=== PATIENT | male | born 1970 | race Caucasian/White ===

== ENCOUNTER → 2018-01-02 | Outpatient (CLI) | payer OTHER ==
[~2018-01-02] MED LIST: GABA300 PO; OXYC15ER PO; ZOLP10 PO
== END | disposition home or self-care (01) ==
LOC: LAB EV 16:48 → LAB SHORT 16:48
DX: J02.9 Acute pharyngitis, unspecified (principal)
CPT/HCPCS: 87070

== ENCOUNTER → 2018-01-10 | Outpatient (CLI) | payer OTHER ==
[2018-01-10 13:44] LABS: BASOPHILS ABSOLUTE AUTO 0.03 K/mm3 (0.00-0.23); BASOPHILS PERCENT AUTO 1 % (0-2); EOSINOPHILS ABSOLUTE AUTO 0.16 K/mm3 (0.00-0.68); EOSINOPHILS PERCENT AUTO 3 % (0-6); Hematocrit 40.8 % (37.0-53.0); Hemoglobin 14.1 g/dL (13.5-17.5); IMMATURE GRAN ABSOLUTE AUTO 0.01 K/mm3 (0.00-0.10); IMMATURE GRAN PERCENT AUTO 0 % (0-1); LYMPHOCYTES ABSOLUTE AUTO 1.57 K/mm3 (0.84-5.20); LYMPHOCYTES PERCENT AUTO 28 % (21-46); MONOCYTES ABSOLUTE AUTO 0.54 K/mm3 (0.16-1.47); MONOCYTES PERCENT AUTO 10 % (4-13); Mean Corpuscular HGB 31.1 pg (26.0-34.0); Mean Corpuscular HGB Conc 34.6 g/dL (31.5-36.5); Mean Corpuscular Volume 90 fL (80-100); Mean Platelet Volume 9.2 fL (9.1-12.4); NEUTROPHILS ABSOLUTE AUTO 3.24 K/mm3 (1.96-9.15); NEUTROPHILS PERCENT AUTO 58 % (41-73); Platelet Count 257 K/mm3 (150-400); RDW Coefficient Variation 13.2 % (11.7-14.2); RDW Standard Deviation 43.2 fL (35.1-46.3); Red Blood Cell Count 4.53 M/mm3 (4.30-5.90); White Blood Cell Count 5.55 K/mm3 (4.00-11.30)
[2018-01-10 14:03] LABS: Alanine Aminotransfer (ALT/SGP 38 U/L (12-78); Albumin, Blood 3.8 g/dL (3.4-5.0); Alk Phos 86 U/L (40-126); Anion Gap 9 mmol/L (6-16); Aspartate Aminotrans (AST/SGOT 27 U/L (12-37); Bilirubin, Total 0.3 mg/dL (0.1-1.0); Blood Urea Nitrogen 20 mg/dL (8-24); Bun/Creatinine Ratio 23.3 (12.0-20.0); CO2, Blood 28 mmol/L (21-32); Chloride, Blood 102 mmol/L (98-108); Creatinine, Blood 0.86 mg/dL (0.60-1.20); Globulin, Blood 3.8 g/dL (2.2-4.0); Glomerular Filtration Rate >60 (60-); Glucose, Blood 121 mg/dL (70-99); Potassium, Blood 3.7 mmol/L (3.5-5.5); Sodium, Blood 139 mmol/L (136-145); Thyroid Stimulating Hormone 16.798 uIU/mL (0.360-4.800); Total Protein, Blood 7.6 g/dL (6.4-8.2)
[2018-01-10 14:42] LABS: Free Thyroxine 0.63 ng/dL (0.70-1.60)
[2018-01-12 06:12] LABS: HBSAG SCREEN Negative (Negative); HEP A AB, IGM Negative (Negative); HEP B CORE AB, IGM Negative (Negative); HEP C VIRUS AB <0.1 (0.0-0.9)
[2018-01-12 11:07] LABS: HIV SCREEN 4TH GENERATION WRFX Non Reactive (Non Reactive)
== END | disposition home or self-care (01) ==
LOC: LAB SHORT 13:35 → LAB EV 13:35
PROVIDERS: Physician Assistant
DX: R53.83 Other fatigue (principal); Z20.9 Contact with and (suspected) exposure to unspecified communicable disease
CPT/HCPCS: 80053; 84439; 84443; 84481; 85025; 86592

== ENCOUNTER 2018-01-23 09:03 | Emergency (ER) | payer OTHER ==
[~2018-01-23] VITALS: Ht 182.9 cm; Wt 79.4 kg
[2018-01-23] MEDS ORDERED: Naprosyn500 MG PO (10:11)
== END 2018-01-23 10:50 | disposition home or self-care (01) ==
LOC: ER 09:03
DX: S91.302A Unspecified open wound, left foot, initial encounter (principal); S00.31XA Abrasion of nose, initial encounter; S50.811A Abrasion of right forearm, initial encounter; S80.812A Abrasion, left lower leg, initial encounter; M25.552 Pain in left hip; V23.4XXA Motorcycle driver injured in collision with car, pick-up truck or van in traffic accident, initial encounter; Z88.5 Allergy status to narcotic agent; Z88.8 Allergy status to other drugs, medicaments and biological substances; Z79.891 Long term (current) use of opiate analgesic; Z79.899 Other long term (current) drug therapy; F17.200 Nicotine dependence, unspecified, uncomplicated
CPT/HCPCS: 73100; 73502; 73620; 90471; 90714; 99284

== ENCOUNTER 2018-01-27 08:52 | Emergency (ER) | payer OTHER ==
[~2018-01-27] VITALS: Ht 177.8 cm; Wt 79.4 kg
[~2018-01-27 08:52] MED LIST changes: +Naprosyn500 MG PO
[2018-01-27] MEDS ORDERED: Mupirocin22 GM TOP (09:10)
[2018-01-27] MEDS ORDERED: CEPH500 PO (09:10)
== END 2018-01-27 09:32 | disposition home or self-care (01) ==
LOC: ER 08:52
DX: S62.001A Unspecified fracture of navicular [scaphoid] bone of right wrist, initial encounter for closed fracture (principal); S91.332A Puncture wound without foreign body, left foot, initial encounter; L08.9 Local infection of the skin and subcutaneous tissue, unspecified; S70.02XA Contusion of left hip, initial encounter; V89.2XXA Person injured in unspecified motor-vehicle accident, traffic, initial encounter; Z88.8 Allergy status to other drugs, medicaments and biological substances; Z88.5 Allergy status to narcotic agent; F17.200 Nicotine dependence, unspecified, uncomplicated
CPT/HCPCS: 99282

== ENCOUNTER 2018-09-06 19:07 | Emergency (ER) | payer OTHER ==
[~2018-09-06 19:07] MED LIST changes: +CEPH500 PO; +Mupirocin22 GM TOP
== END 2018-09-06 20:06 | disposition left against medical advice (07) ==
LOC: ER 19:07
DX: Z53.21 Procedure and treatment not carried out due to patient leaving prior to being seen by health care provider (principal)

== ENCOUNTER 2018-11-07 20:56 | Emergency (ER) | payer OTHER ==
[~2018-11-07] VITALS: Ht 182.9 cm; Wt 81.7 kg
[2018-11-07] MEDS ORDERED: BRINTELLIX10 MG PO (21:32)
[2018-11-07] MEDS ORDERED: ZOLP10 PO (21:32)
[2018-11-07] MEDS ORDERED: CEPH500 PO (22:43)
== END 2018-11-07 22:48 | disposition home or self-care (01) ==
LOC: ER 20:56
DX: L02.411 Cutaneous abscess of right axilla (principal); L03.111 Cellulitis of right axilla; Z88.5 Allergy status to narcotic agent; Z88.8 Allergy status to other drugs, medicaments and biological substances; Z79.899 Other long term (current) drug therapy; F17.200 Nicotine dependence, unspecified, uncomplicated
CPT/HCPCS: 10060; 99282-25

== ENCOUNTER 2022-05-28 22:22 | Emergency (ER) | payer OTHER ==
[~2022-05-28] VITALS: Ht 180.3 cm; Wt 74.8 kg
[~2022-05-28 22:22] MED LIST changes: +BRINTELLIX10 MG PO; +KETO10 PO; +ONDA4ODT PO
[2022-05-28] MEDS ORDERED: SYNTHROID50 MC1 PO (23:25)
[2022-05-28 23:30] LABS: BASOPHILS ABSOLUTE AUTO 0.03 K/mm3 (0.00-0.23); BASOPHILS PERCENT AUTO 1 % (0-2); EOSINOPHILS ABSOLUTE AUTO 0.21 K/mm3 (0.00-0.68); EOSINOPHILS PERCENT AUTO 3 % (0-6); Hematocrit 40.2 % (37.0-53.0); Hemoglobin 14.1 g/dL (13.5-17.5); IMMATURE GRAN ABSOLUTE AUTO 0.01 K/mm3 (0.00-0.10); IMMATURE GRAN PERCENT AUTO 0 % (0-1); LYMPHOCYTES ABSOLUTE AUTO 1.57 K/mm3 (0.84-5.20); LYMPHOCYTES PERCENT AUTO 24 % (21-46); MONOCYTES ABSOLUTE AUTO 0.67 K/mm3 (0.16-1.47); MONOCYTES PERCENT AUTO 10 % (4-13); Mean Corpuscular HGB 31.8 pg (26.0-34.0); Mean Corpuscular HGB Conc 35.1 g/dL (31.5-36.5); Mean Corpuscular Volume 91 fL (80-100); Mean Platelet Volume 8.7 fL (9.1-12.4); NEUTROPHILS ABSOLUTE AUTO 4.07 K/mm3 (1.96-9.15); NEUTROPHILS PERCENT AUTO 62 % (41-73); Platelet Count 249 K/mm3 (150-400); RDW Coefficient Variation 12.7 % (11.7-14.2); RDW Standard Deviation 42.4 fL (35.1-46.3); Red Blood Cell Count 4.44 M/mm3 (4.30-5.90); White Blood Cell Count 6.56 K/mm3 (4.00-11.30)
[2022-05-28 23:54] LABS: Albumin, Blood 3.8 g/dL (3.4-5.0); Albumin/Globulin Ratio 1.1 (0.8-1.8); Bilirubin, Total 0.3 mg/dL (0.1-1.0); Bun/Creatinine Ratio 25.3 (12.0-20.0); Calcium, Blood 8.9 mg/dL (8.5-10.1); Creatinine, Blood 0.79 mg/dL (0.60-1.20); Globulin, Blood 3.5 g/dL (2.2-4.0); Potassium, Blood 3.8 mmol/L (3.5-5.5); Thyroid Stimulating Hormone 62.9 uIU/mL (0.360-4.800); Total Protein, Blood 7.3 g/dL (6.4-8.2)
== END 2022-05-29 02:09 | disposition home or self-care (01) ==
LOC: ER 22:22
PROVIDERS: Emergency Medicine
DX: R07.89 Other chest pain (principal); I10 Essential (primary) hypertension; E03.9 Hypothyroidism, unspecified; F17.210 Nicotine dependence, cigarettes, uncomplicated; Z79.890 Hormone replacement therapy
CPT/HCPCS: 36415; 71045; 80053; 83880; 84443; 84484; 85025; 93005; 93010; 99285-25

== ENCOUNTER 2022-10-18 01:11 | Emergency (ER) | payer OTHER ==
[~2022-10-18] VITALS: Ht 180.3 cm; Wt 86.2 kg
[~2022-10-18 01:11] MED LIST changes: +SYNTHROID50 MC1 PO
[2022-10-18] MEDS ORDERED: IBUP800 PO (01:23)
[2022-10-18] MEDS ORDERED: Amoxicillin875 MG PO (01:23)
== END 2022-10-18 01:43 | disposition home or self-care (01) ==
LOC: ER 01:11
DX: K02.9 Dental caries, unspecified (principal); E03.9 Hypothyroidism, unspecified; F17.210 Nicotine dependence, cigarettes, uncomplicated; Z79.899 Other long term (current) drug therapy
CPT/HCPCS: A9270

== ENCOUNTER → 2023-01-09 | Emergency (ER) | payer OTHER ==
[~2023-01-09] VITALS: Ht 182.9 cm; Wt 81.7 kg
[~2023-01-09] MED LIST changes: +Amoxicillin875 MG PO; +CYCL10 PO; +IBUP800 PO
[2023-01-09 20:44] VITALS: BP 142/114
== END ==
LOC: ER 20:23
DX: S16.1XXA Strain of muscle, fascia and tendon at neck level, initial encounter (principal); E03.9 Hypothyroidism, unspecified; F17.210 Nicotine dependence, cigarettes, uncomplicated; X58.XXXA Exposure to other specified factors, initial encounter; Z79.890 Hormone replacement therapy
CPT/HCPCS: J1885

== ENCOUNTER 2023-02-04 23:25 | Emergency (ER) | payer OTHER ==
[~2023-02-04] VITALS: Ht 182.9 cm; Wt 79.4 kg
[~2023-02-04 23:25] MED LIST changes: +IBU600 M1 PO; +Robaxin750 MG PO
[2023-02-04 23:37] VITALS: BP 176/107
[2023-02-05] MEDS ORDERED: LIDO700A20 TOP (00:37)
[2023-02-05] MEDS ORDERED: Robaxin750 MG PO (00:37)
[2023-02-05] MEDS ORDERED: HYDR1TAB94 PO (00:38)
== END 2023-02-05 00:44 | disposition home or self-care (01) ==
LOC: ER 23:25
DX: M54.2 Cervicalgia (principal); F17.210 Nicotine dependence, cigarettes, uncomplicated
CPT/HCPCS: 96372; 99282-25; A9270; J1885

== ENCOUNTER 2023-02-13 22:48 | Emergency (ER) | payer OTHER ==
[~2023-02-13] VITALS: Ht 182.9 cm; Wt 79.4 kg
[~2023-02-13 22:48] MED LIST changes: +HYDR1TAB94 PO; +LIDO700A20 TOP
[2023-02-14] MEDS ORDERED: GABA300 PO (01:55)
[2023-02-14 02:30] VITALS: BP 143/108
== END 2023-02-14 02:42 | disposition home or self-care (01) ==
LOC: ER 22:48
DX: M54.12 Radiculopathy, cervical region (principal); F17.210 Nicotine dependence, cigarettes, uncomplicated
CPT/HCPCS: 96372; 99283-25; A9270; J1885; J2270

== ENCOUNTER 2023-02-20 02:24 | Emergency (ER) | payer OTHER ==
[~2023-02-20] VITALS: Ht 182.9 cm; Wt 79.4 kg
[2023-02-20 02:29] VITALS: BP 145/76
[2023-02-20] MEDS ORDERED: Voltaren100 GM TOP (03:22)
[2023-02-20] MEDS ORDERED: NAPR500 PO (03:22)
[2023-02-20] MEDS ORDERED: CYCL10 PO (03:22)
== END 2023-02-20 03:29 | disposition home or self-care (01) ==
LOC: ER 02:24
DX: S16.1XXA Strain of muscle, fascia and tendon at neck level, initial encounter (principal); G44.209 Tension-type headache, unspecified, not intractable; X58.XXXA Exposure to other specified factors, initial encounter; Z79.899 Other long term (current) drug therapy; F17.210 Nicotine dependence, cigarettes, uncomplicated
CPT/HCPCS: 96374; 96375; 99282-25; A9270; J1100; J1885

== ENCOUNTER 2023-02-28 01:43 | Emergency (ER) | payer OTHER ==
[~2023-02-28] VITALS: Ht 182.9 cm; Wt 79.4 kg
[~2023-02-28 01:43] MED LIST changes: +NAPR500 PO; +Voltaren100 GM TOP
[2023-02-28 01:51] VITALS: BP 144/71
[2023-02-28] MEDS ORDERED: IBUP200 PO (02:19)
[2023-02-28] MEDS ORDERED: IBUP800 PO (03:44)
[2023-02-28] MEDS ORDERED: GABA300 PO (03:44)
== END 2023-02-28 04:00 | disposition home or self-care (01) ==
LOC: ER 01:43
DX: M54.12 Radiculopathy, cervical region (principal); F17.210 Nicotine dependence, cigarettes, uncomplicated
CPT/HCPCS: 96372; 99283; A9270; J1885

== ENCOUNTER 2023-04-29 22:35 | Emergency (ER) | payer OTHER ==
[~2023-04-29] VITALS: Ht 182.9 cm; Wt 79.4 kg
[~2023-04-29 22:35] MED LIST changes: +IBUP200 PO
[2023-04-29 22:40] VITALS: BP 154/104
[2023-04-29] MEDS ORDERED: LEVOTHYROXINE50 MC9 PO (22:45)
== END 2023-04-29 23:05 | disposition home or self-care (01) ==
LOC: ER 22:35
DX: M54.41 Lumbago with sciatica, right side (principal); Z79.899 Other long term (current) drug therapy; F17.200 Nicotine dependence, unspecified, uncomplicated
CPT/HCPCS: 96374; 99283-25; J1885

== ENCOUNTER 2023-05-24 21:46 | Emergency (ER) | payer OTHER ==
[~2023-05-24] VITALS: Ht 182.9 cm; Wt 79.4 kg
[~2023-05-24 21:46] MED LIST changes: +LEVOTHYROXINE50 MC9 PO
[2023-05-24 21:54] VITALS: BP 137/89
[2023-05-24] MEDS ORDERED: HYDR1TAB94 PO (22:30)
== END 2023-05-24 22:36 | disposition home or self-care (01) ==
LOC: ER 21:46
DX: M54.12 Radiculopathy, cervical region (principal); M54.30 Sciatica, unspecified side; Z79.899 Other long term (current) drug therapy; F17.210 Nicotine dependence, cigarettes, uncomplicated
CPT/HCPCS: 96372; 99283-25; A9270; J1885

== ENCOUNTER 2023-05-28 09:55 | Emergency (ER) | payer OTHER ==
[~2023-05-28] VITALS: Ht 182.9 cm; Wt 79.4 kg
[2023-05-28 11:07] LABS: BASOPHILS ABSOLUTE AUTO 0.03 K/mm3 (0.00-0.23); BASOPHILS PERCENT AUTO 1 % (0-2); EOSINOPHILS ABSOLUTE AUTO 0.25 K/mm3 (0.00-0.68); EOSINOPHILS PERCENT AUTO 5 % (0-6); Hematocrit 43.9 % (37.0-53.0); Hemoglobin 14.9 g/dL (13.5-17.5); IMMATURE GRAN ABSOLUTE AUTO 0.01 K/mm3 (0.00-0.10); IMMATURE GRAN PERCENT AUTO 0 % (0-1); LYMPHOCYTES PERCENT AUTO 24 % (21-46); MONOCYTES ABSOLUTE AUTO 0.58 K/mm3 (0.16-1.47); MONOCYTES PERCENT AUTO 11 % (4-13); Mean Corpuscular HGB 31.3 pg (26.0-34.0); Mean Corpuscular HGB Conc 33.9 g/dL (31.5-36.5); Mean Corpuscular Volume 92 fL (80-100); Mean Platelet Volume 9.1 fL (9.1-12.4); NEUTROPHILS ABSOLUTE AUTO 3.27 K/mm3 (1.96-9.15); NEUTROPHILS PERCENT AUTO 60 % (41-73); Platelet Count 287 K/mm3 (150-400); RDW Coefficient Variation 12.9 % (11.7-14.2); RDW Standard Deviation 43.8 fL (35.1-46.3); Red Blood Cell Count 4.76 M/mm3 (4.30-5.90); White Blood Cell Count 5.44 K/mm3 (4.00-11.30)
[2023-05-28 11:35] LABS: Albumin, Blood 4.1 g/dL (3.4-5.0); Albumin/Globulin Ratio 1.2 (0.8-1.8); Bilirubin, Total 0.3 mg/dL (0.1-1.0); Bun/Creatinine Ratio 25.7 (12.0-20.0); Calcium, Blood 9.3 mg/dL (8.5-10.1); Creatinine, Blood 0.66 mg/dL (0.60-1.20); Globulin, Blood 3.4 g/dL (2.2-4.0); Potassium, Blood 4.2 mmol/L (3.5-5.5); Total Protein, Blood 7.5 g/dL (6.4-8.2)
[2023-05-28 12:29] LABS: Source, Urine Clean Catch
[2023-05-28 12:54] LABS: Appearance, Urine Clear (Clear); Bilirubin, Urine Neg (Neg); Blood, Urine 1+ (Neg); Color, Urine Yellow (P-Yellow); Glucose Qualitative, Urine Neg (Neg); Ketones, Urine Neg (Neg); Leukocyte Esterase, Urine Neg (Neg); Nitrite, Urine Neg (Neg); Protein, Urine Neg (Neg); Urobilinogen, Urine NORM (Normal)
[2023-05-28 13:03] LABS: Bacteria Rare /hpf; Squamous Epithelial Cells Not Seen /hpf (Few); White Blood Cells, Urine 0-2 /hpf (0-5)
[2023-05-28] MEDS ORDERED: Norco 5-325 Ta1 EACH PO (13:41)
[2023-05-28 14:00] VITALS: BP 117/92
== END 2023-05-28 14:02 | disposition home or self-care (01) ==
LOC: ER 09:55
PROVIDERS: Physician Assistant
DX: M54.9 Dorsalgia, unspecified (principal); F17.210 Nicotine dependence, cigarettes, uncomplicated; Z79.899 Other long term (current) drug therapy
CPT/HCPCS: 51798; 80053; 81001; 85025; 96374; 96375; 99283-25; J1885; J2270; J2405

== ENCOUNTER 2024-06-08 20:58 | Emergency (ER) | payer OTHER ==
[~2024-06-08] VITALS: Ht 182.9 cm; Wt 79.4 kg
[~2024-06-08 20:58] MED LIST changes: +ASPERFLEX1 EACH TOP; +Norco 5-325 Ta1 EACH PO
[2024-06-08] MEDS ORDERED: RX Prepack 6 Tabs Oxycodone 5mg UD ONE (22:40)
[2024-06-08] MEDS ORDERED: HYDROcodone 5-APAP 325 TAB PO ONE (22:45)
[2024-06-08 22:57] VITALS: BP 127/64
== END 2024-06-08 22:56 | disposition home or self-care (01) ==
LOC: ER 20:58
DX: M70.42 Prepatellar bursitis, left knee (principal); E03.9 Hypothyroidism, unspecified; F17.210 Nicotine dependence, cigarettes, uncomplicated; Z79.890 Hormone replacement therapy; Z79.899 Other long term (current) drug therapy
CPT/HCPCS: 73562-LT; 99283-25; A9270

== ENCOUNTER 2025-02-24 12:06 | Emergency (ER) | payer OTHER ==
[~2025-02-24] VITALS: Ht 182.9 cm; Wt 77.1 kg
[~2025-02-24 12:06] MED LIST changes: +MIRALAX17 GM PO
[2025-02-24 12:22] VITALS: BP 148/110
[2025-02-24] MEDS ORDERED: Dexamethasone Sod Phos 10 MG/ML 1ML VIAL PO ONE (12:25)
[2025-02-24] MEDS ORDERED: Ketorolac Tromethamine 30mg Vial IM ONE (12:25)
[2025-02-24 12:51] LABS: CORONAVIRUS COVID-19 AG Negative (NEGATIVE)
== END 2025-02-24 13:12 | disposition home or self-care (01) ==
LOC: ER 12:06
PROVIDERS: Student in an Organized Health Care Education/Training Program
DX: J02.8 Acute pharyngitis due to other specified organisms (principal); E03.9 Hypothyroidism, unspecified; F17.210 Nicotine dependence, cigarettes, uncomplicated; Z79.890 Hormone replacement therapy; Z79.899 Other long term (current) drug therapy; Z11.52 Encounter for screening for COVID-19
CPT/HCPCS: 87081; 87428-QW; 87430; 96372; 99283-25; J1100; J1885

== ENCOUNTER → 2025-03-17 | Outpatient (CLI) | payer OTHER | LOC: LAB 15:05 → LAB SHORT 15:05 | DX: J02.9 Acute pharyngitis, unspecified (principal) | CPT/HCPCS: 87081 ==